=== PATIENT | male | born 1990 | race Caucasian/White ===

== ENCOUNTER 2023-04-22 14:12 | Emergency (ER) | payer OTHER, SELFPAY ==
[2023-04-22] VITALS (8 sets, daily range): BP systolic 144–160; BP diastolic 79–93; PULSE 67–78; RESP 12–18; TEMP 36.7–37.3; O2SAT 100
--- NOTE | ~2023-04-22 | CT_ITS ---
EXAMINATION: CT abdomen pelvis wo con DATE: 04/22/2023 16:31 INDICATION: Rule out stone TECHNIQUE: Computed tomography (CT) of the abdomen and pelvis was performed without intravenous contr ast. The dose-length product was 840.29 mGy-cm. Automated exposure control and iterative reconstructi on technique were employed. COMPARISON: CT dated 02/12/2018 FINDINGS: Lung bases are unremarkable. No significant pleural or pericardial effusion. Heart size nor mal. Small hiatal hernia. No significant vascular abnormality. No lymphadenopathy. The liver, spleen, pancreas, adrenal glands and right kidney are unremarkable. Nonobstructive bowel pattern. There is a 7 mm left UVJ stone with moderate hydronephrosis. There is left periureteral edema. No abn ormal pelvic masses or fluid collections. No acute osseous abnormality. IMPRESSION: 1. Left UPJ stone measuring 7 mm with moderate hydronephrosis. Reviewed, dictated and finalized at location B.
[2023-04-22 14:58] LABS: Appearance Urine Cloudy (Clear); Bacteria Urine None Seen /hpf; Bilirubin Urine Negative (Negative); Blood Urine Negative (Negative); Color Urine Yellow (Yellow); Glucose Urine UA Negative (Negative); Ketones Urine Trace mg/dL (Negative); Leukocyte Esterase Ur Negative LEU/UL (Negative); Nitrate Urine Negative (Negative); Non Pathogenic Casts 0-2; Protein Urine Negative (Negative); RBC Urine 0-2 /hpf (0-2); Specific Grav Ur 1.025 (1.001-1.035); Squamous Epithelial Cell Urine None seen /hpf (Few); Urobilinogen Urine 0.2 mg/dL (<2.0); WBC Urine 0-5 /hpf
[2023-04-22 15:02] LABS: Add Urine Microscopic? YES
--- NOTE | 2023-04-22 16:04 | ED.MALEGU ---
HPI - Male Genitourinary General Chief complaint: Urogenital-Male <Beto Romero APRN - Last Filed: 04/22/23 16:18> Stated complaint: kidney stone <Beto Romero APRN - Last Filed: 04/22/23 16:18> Time Seen by Provider: 04/22/23 16:03 <Beto Romero APRN - Last Filed: 04/22/23 16:18> Source: patient <Beto Romero APRN - Last Filed: 04/22/23 16:18> Mode of arrival: ambulatory <Beto Romero APRN - Last Filed: 04/22/23 16:18> Limitations: no limitations <Beto Romero APRN - Last Filed: 04/22/23 16:18> History of Present Illness HPI Narrative: Corby is a 32 year old female patient presenting to the clinic today with c/o possible kidney stone. Reports pain started at 0900 this morning. Has constant pain to the left flank and left abdomen that is stabbing in nature. Pain wraps from the left flank into abdomen. Is having associated nausea and vomiting. Rates pain 9/10 currently. Last BM last night- normal for him. <Beto Romero APRN - Last Filed: 04/22/23 16:18> Corby is a 32 year old female patient presenting to the clinic today with c/o possible kidney stone. Reports pain started at 0900 this morning. Has constant pain to the left flank and left abdomen that is stabbing in nature. Pain wraps from the left flank into abdomen. Is having associated nausea and vomiting. Rates pain 9/10 currently. Last BM last night- normal for him. Reports he does have a prior history of a kidney stone back in 2018 and he was cared for by Dr. Otero <Deniz Wilde MD - Last Filed: 04/23/23 08:10> Related Data Allergies/Adverse reactions: Allergies Allergy/AdvReac Type Severity Reaction Status Date / Time cefaclor Allergy Unknown Unknown-WAS Verified 02/14/18 06:09 CHILD loracarbef Allergy Unknown Unknown-WAS Verified 02/14/18 06:09 CHILD <Beto Romero APRN - Last Filed: 04/22/23 16:18> Review of Systems Review of Systems: All systems reviewed & are unremarkable except as noted in HPI and below <Beto Romero APRN - Last Filed: 04/22/23 16:18> PMFSH Comments At the time of my signature, I reviewed and agree with the nursing past medical, surgical, social, and family history. There is no relevant family history pertinent to the patient complaint. <Beto Romero APRN - Last Filed: 04/22/23 16:18> Exam Narrative: APPEARANCE: Well appearing, no pain, no distress, well-nourished. HEAD: normocephalic, atraumatic. EYES: PERRLA/EOMI, conjunctivae clear. NOSE: Normal no drainage EARS:TMS clear with good light reflex. THROAT: Pharynx clear, no exudate. NECK: Supple. No adenopathy, no masses. RESPIRATORY: Airway patent, respirations nonlabored. Clear to auscultation bilaterally, no rales, rhonchi, wheezing. CARDIOVASCULAR: Regular rate and rhythm without murmurs rubs or gallops. ABDOMINAL: No CVA tenderness to palpation MUSCULOSKELETAL: Moves all extremities. Strength/ROM intact, No edema, No calf tenderness. NEURO: Alert. Cranial nerves II through XII intact. Grossly intact SKIN: Warm, dry. Normal Color <Deniz Wilde MD - Last Filed: 04/23/23 08:10> Const: General: healthy appearing, diaphoretic and ill appearing <Beto Romero APRN - Last Filed: 04/22/23 16:18> Other: pale <Beto Romero APRN - Last Filed: 04/22/23 16:18> HENMT: Head: normal to inspection <Beto Romero APRN - Last Filed: 04/22/23 16:18> Resp: Effort & Inspection: normal respiratory effort <Beto Romero APRN - Last Filed: 04/22/23 16:18> Auscultation: clear to auscultation bilaterally <Beto Romero APRN - Last Filed: 04/22/23 16:18> Cardio: Rate: regular rate <Beto Romero APRN - Last Filed: 04/22/23 16:18> Rhythm: regular rhythm <Beto Romero APRN - Last Filed: 04/22/23 16:18> Other: no murmur <Beto Romero APRN - Last Filed: 04/22/23 16:18> GI: Ot
[2023-04-22] MEDS: ONDANSETRON INJ 4 MG/2 ML VIAL IV PUSH (16:18)
--- NOTE | 2023-04-22 16:21 | PC.NURSE ---
pt to room 18 to be evaluate by [facility]
[2023-04-22 16:28] LABS: Basophils Percent Auto 0.3 % (0.2-1.2); Eosinophils Percent Auto 0.1 % (0-4.4); Hematocrit 41.2 % (42.0-52.0); Hemoglobin 14.2 g/dL (14.0-18.0); Immature Granulocyte Absolute 0.07 K/mm3 (0.00-0.031); Immature Granulocyte Percent A 0.6 % (0-0.5); Lymphocytes Absolute Auto 1.11 K/mm3 (0.9-3.2); Lymphocytes Percent Auto 9.4 % (18.3-44.2); Mean Corpuscular HGB Conc 34.5 g/dl (32-36); Mean Corpuscular Hemoglobin 31.2 pg (26-34); Mean Corpuscular Volume 90.5 fl (80-100); Mean Platelet Volume 9.2 fl (7.4-10.4); Monocytes Absolute Auto 0.3 K/mm3 (0.1-0.6); Monocytes Percent Auto 2.3 % (2.6-8.5); Neutrophils Absolute Auto 10.4 K/mm3 (1.3-6.7); Neutrophils Percent Auto 87.3 % (45.5-73.1); Platelet Count Result 238 k/mm3 (150-375); Red Blood Count 4.55 M/mm3 (4.6-6.20); Red Cell Distribution Width 11.9 % (11.5-14.5); White Blood Count 11.9 K/mm3 (4.5-10.0)
[2023-04-22 16:36] LABS: Alanine Aminotransferase 29 U/L (6-50); Albumin Level 4.8 g/dL (3.5-5.1); Alkaline Phosphatase 117 U/L (38-126); Anion Gap 11 mmol/L (8-16); Aspartate Amino Transferase 30 U/L (17-59); Bilirubin,Total 1.1 mg/dL (0.2-1.3); Blood Urea Nitrogen 9 mg/dL (9-20); Calcium 9.2 mg/dL (8.4-10.2); Carbon Dioxide 25 mmol/L (22-30); Chloride 100 mmol/L (98-107); Estimated CRCL calculation 116 ml/min; Estimated Glomerular Filt Rate > 60; Glucose 120 mg/dL (65-110); Potassium 3.7 mmol/L (3.4-5.0); Sodium 136 mmol/L (137-145)
[2023-04-22] MEDS: HYDROmorphone HCL INJ (*CRX) 1 MG/ML SYR IV PUSH (17:18)
[2023-04-22] MEDS: HYDROcodone/acetaminophen (*CRX) 5-325 MG TABLET 1 TAB PO (17:50)
== END 2023-04-22 18:33 | disposition home or self-care (01) ==
PROVIDERS: Nurse Practitioner Family; Emergency Provider Emergency Medicine; PCP Internal Medicine
DX: N13.2 Hydronephrosis with renal and ureteral calculous obstruction (principal)
CPT/HCPCS: 36415; 74176; 80053; 81001; 85025; 96374; 96375; 99284; A9270; J1170; J2405

== ENCOUNTER 2023-09-29 19:39 | Emergency (ER) | payer OTHER, SELFPAY ==
--- NOTE | ~2023-09-29 | XR_ITS ---
EXAM: XR knee LT min 4V DATE: 09/29/2023 20:12 HISTORY: left knee injury . COMPARISON: 04/01/2009. FINDINGS: Normal mineralization. No fracture or dislocation. No lytic or blastic lesion. Joint space s are maintained. No erosion or periosteal change. Soft tissues within normal limits. Large phalange joint effusion. IMPRESSION: No acute osseous finding in the left knee. Large left knee effusion. Reviewed, dictated and finalized at location K. [facility] IMPRESSION: No acute osseous finding in the left knee. Large left knee effusion .
[2023-09-29 19:49] VITALS: BP 93/58; PULSE 76; RESP 20; TEMP 36.1; O2SAT 98
--- NOTE | 2023-09-29 20:09 | ED.GENADULT ---
HPI - General Adult General Chief complaint: Extremity Injury, Lower Stated complaint: left knee injury, playing soccer Time Seen by Provider: 09/29/23 20:00 History of Present Illness HPI narrative: 33-year-old male presenting to the emergency department for evaluation of left knee pain. Patient was playing soccer when he landed on his left knee and felt his patella slide laterally. Patient states he felt everything pop back into place. Patient was able to ambulate with mild weight on the left leg. Related Data Home Medications Medication Instructions Recorded Confirmed No Home Medications 09/29/23 09/29/23 Allergies Allergy/AdvReac Type Severity Reaction Status Date / Time cefaclor Allergy Unknown Unknown-WAS Verified 09/29/23 19:53 CHILD loracarbef Allergy Unknown Unknown-WAS Verified 09/29/23 19:53 CHILD Review of Systems Review of Systems: All systems reviewed & are unremarkable except as noted in HPI and below Exam Narrative: APPEARANCE: Well appearing, no pain, no distress, well-nourished. HEAD: normocephalic, atraumatic. EYES: PERRLA/EOMI, conjunctivae clear. NOSE: Normal no drainage NECK: Supple. No adenopathy, no masses. RESPIRATORY: Airway patent, respirations nonlabored. Clear to auscultation bilaterally, no rales, rhonchi, wheezing. CARDIOVASCULAR: Regular rate and rhythm without murmurs rubs or gallops. ABDOMINAL: Soft, nontender, nondistended, normal bowel sounds MUSCULOSKELETAL: No deformity of the left knee, neurovascular intact NEURO: Alert. Cranial nerves II through XII intact. Grossly intact SKIN: Warm, dry. Normal Color Course Course Emergency Course: Patient was discharged home with knee immobilizer crutches and instructions to have follow-up with Orthopedics. Vital Signs Vital signs: Vital Signs Temperature 97.0 F L 09/29/23 19:49 Pulse Rate 76 09/29/23 19:49 Respiratory Rate 20 09/29/23 19:49 Blood Pressure 93/58 L 09/29/23 19:49 Pulse Oximetry 98 09/29/23 19:49 Oxygen Delivery Room Air 09/29/23 19:49 Temperature 97.0 F L 09/29/23 19:49 Pulse Rate 88 09/29/23 21:00 Respiratory Rate 20 09/29/23 21:00 Blood Pressure 139/94 H 09/29/23 21:00 Pulse Oximetry 97 09/29/23 21:00 Oxygen Delivery Room Air 09/29/23 19:49 Medical Decision Making MDM Narrative Medical decision making narrative: 33-year-old male presenting to emergency department for evaluation a possible dislocated and her spontaneously reduced left patella. X-ray shows no acute fracture dislocation. Patient was placed in knee immobilizer and provided crutches for limited weight-bearing. Patient was advised to take Tylenol and ibuprofen for pain control. Patient family were comfortable the plan for discharge and close follow-up. Differential Diagnosis Differential Diagnosis: Femur fracture, tibial fracture, patellar dislocation, patellar fracture Vital Signs Vital Signs: Vital Signs Temperature 97.0 F L 09/29/23 19:49 Pulse Rate 76 09/29/23 19:49 Respiratory Rate 20 09/29/23 19:49 Blood Pressure 93/58 L 09/29/23 19:49 Pulse Oximetry 98 09/29/23 19:49 Oxygen Delivery Room Air 09/29/23 19:49 Temperature 97.0 F L 09/29/23 19:49 Pulse Rate 88 09/29/23 21:00 Respiratory Rate 20 09/29/23 21:00 Blood Pressure 139/94 H 09/29/23 21:00 Pulse Oximetry 97 09/29/23 21:00 Oxygen Delivery Room Air 09/29/23 19:49 Imaging Data Radiologist's impression: Impressions Knee X-Ray 09/29/23 20:38 IMPRESSION: No acute osseous finding in the left knee. Large left knee effusion. Discharge Plan Discharge Clinical Impression: Injury of knee, Effusion of knee Patient Disposition: Home, Self-Care Condition: Stable Instructions: Antibiotic Form, Crutch Instructions (ED), Knee Immobilizer (ED) Additional Instructions: Crutches for limited weight-bearing. Knee immobilizer for comfort. Have close follow-u
[2023-09-29 21:00] VITALS: BP 139/94; PULSE 88; RESP 20; O2SAT 97
== END 2023-09-29 21:00 | disposition home or self-care (01) ==
LOC: ANHED 21:14
PROVIDERS: Emergency Provider Emergency Medicine; PCP Internal Medicine
DX: S89.92XA Unspecified injury of left lower leg, initial encounter (principal); M25.462 Effusion, left knee; X50.9XXA Other and unspecified overexertion or strenuous movements or postures, initial encounter; Y93.66 Activity, soccer
CPT/HCPCS: 73564; 99283

== ENCOUNTER 2024-11-26 15:49 | Outpatient (CLI) | payer OTHER, SELFPAY ==
--- NOTE | ~2024-11-26 | XR_ITS ---
3 VIEWS LUMBAR SPINE Ordering provider: Samir Mack, History: . other low back pain . Comparison: None. FINDINGS: VERTEBRAL BODIES: No visible fracture or subluxation. Mild degenerative changes. DISK SPACES: Normal. SOFT TISSUES: Normal. Bilateral sacroiliacs. IMPRESSION: No acute osseous abnormality lumbar spine. Bilateral sacroiliacs. Reviewed, dictated and finalized at location A.
== END 2024-11-26 15:50 | disposition home or self-care (01) ==
LOC: MICIMG 15:51
PROVIDERS: PCP Internal Medicine; Visit Provider Internal Medicine
DX: M54.59 Other low back pain (principal); M46.1 Sacroiliitis, not elsewhere classified
CPT/HCPCS: 72100

== ENCOUNTER 2024-12-25 15:01 | Outpatient (CLI) | payer OTHER, SELFPAY ==
--- NOTE | ~2024-12-25 | US_ITS ---
US scrotum doppler INDICATION: Left testicular pain TECHNIQUE: Testicular sonogram utilizing grayscale and color Doppler FINDINGS: The testes are normal in size and appearance. No focal lesions are seen. The right testes measures 4.2 x 3.1 x 2 cm centimeters, and the left testis measures 4.4 x 2.4 x 2.1 cm cm. There is n ormal vascular flow to both testes. The right and left epididymides appear normal. There is no varicocele or hydrocele. IMPRESSION: 1. NORMAL TESTICULAR ULTRASOUND. Reviewed, dictated and finalized at location A.
== END 2024-12-25 15:02 | disposition home or self-care (01) ==
LOC: GOSHIMG 15:02
PROVIDERS: PCP Internal Medicine; Visit Provider Internal Medicine
DX: N50.812 Left testicular pain (principal)
CPT/HCPCS: 76870; 93976